=== PATIENT | male | born 1965 | race African-American/Black ===

== ENCOUNTER 2017-02-12 17:02 | Inpatient (IN) | payer MEDICARE ==
--- NOTE | ~2017-02-12 | DS ---
Unit #: [id number] #: [id number] Patient: ALLIE SCHRADER [id number] [place] [address] [id number] I MR#: [id number] NAME: ALLIE SCHRADER ROOM: [facility] Age: 51 Sex: M Admission Date: 02/12/2017 : 1965 Discharge Date: 02/16/2017 Attending Physician: Mynor Oreilly M.D. Primary Care Physician: Primary Care Physician No DISCHARGE SUMMARY REASON FOR ADMISSION Allie is a 53-year-old man, well known to us from previous admissions for schizoaffective disorder. He has obviously been noncompliant with his medications and was admitted in a rambling, grandiose, and psychotic state. DIAGNOSTIC STUDIES LABORATORY RESULTS: Please see hospital chart. HOSPITAL COURSE Allie was readmitted and placed on suicide and psychosis precautions. Zyprexa 10 mg at bedtime was re-initiated and he was seen by our medical affairs specialist, who added Cardizem CD 240 mg daily for his untreated hypertension. He also complained of some low back pain and Motrin was provided. He had an uneventful hospital course, but demonstrated remarkably poor insight, with ongoing grandiosity and rambling speech. He denied any further suicidal ideation, intent, or plan, and on the date of discharge, it was clear that he was not holdable after he requested discharge to the outpatient setting. At this point, his discharge was granted as he lacked criteria for involuntary care. DISCHARGE DIAGNOSES AXIS I: Schizoaffective disorder, bipolar type. AXIS II: No diagnosis. AXIS III: History of chronic pain, hypertension. AXIS IV: AXIS V: DISCHARGE INSTRUCTIONS Follow up with primary care physician and [facility]. DISCHARGE MEDICATIONS Zyprexa 10 mg at bedtime for schizoaffective disorder and Cardizem CD 240 mg daily for hypertension. CONDITION AT DISCHARGE Improved. PROGNOSIS Fair to good. DIET AND ACTIVITY Ad darlene. Unit #: [id number] #: [id number] Patient: ALLIE SCHRADER Dictated by... Mynor Oreilly M.D. [facility]/javidl TD: 04/02/2017 00:07 JOB #: [id number] DISCHARGE SUMMARY Page 1 of 1 X Mynor Oreilly MD DISCHARGE SUMMARY
--- NOTE | ~2017-02-12 | HP ---
Unit #: [id number] #: [id number] Patient: ALLIE SCHRADER [id number] [place] [address] [id number] I MR#: [id number] NAME: ALLIE SCHRADER ROOM: 32 Age: 51 Sex: M Admission Date: 02/12/2017 : 1965 Attending Physician: Mynor Oreilly M.D. Admitting Physician: Mynor Oreilly M.D. Primary Care Physician: Primary Care Physician No HISTORY AND PHYSICAL HISTORY OF PRESENT ILLNESS Allie is a 51 year old, admitted to [address] [place] [address] with psychotic behavior. He has had numerous admissions to this facility for treatment of the same. PAST MEDICAL HISTORY 1. High blood pressure. 2. Obesity. 3. Asthma. PAST SURGICAL HISTORY Nothing reported. ALLERGIES Thorazine, Wellbutrin, Haldol, Geodon, Depakote, and Keppra. SOCIAL HISTORY He denies cigarettes alcohol and illicit drug use. FAMILY HISTORY Medically noncontributory. REVIEW OF SYSTEMS CONSTITUTIONAL: No fever or chills. HEENT: Denies any sore throat, ear pain or runny nose. CARDIOVASCULAR: Denies chest pain, irregular heart rhythm or palpitations. CHEST: Denies shortness of breath or cough. No hemoptysis. GASTROINTESTINAL: Denies nausea, vomiting, diarrhea or chronic constipation. ENDOCRINE: Denies history of increased thirst or urination. No recent significant weight loss or gain. GENITOURINARY: Denies dysuria, frequency, or hematuria. SKIN: Denies any rashes. HEMATOLOGIC: Denies history of increased bleeding or bruising. MUSCULOSKELETAL: Denies any hot, swollen joints. No generalized muscle pain. NEUROLOGIC: Denies problems with vision or speech. No frequent, severe headaches. No numbness, tingling or weakness in any extremities. Denies loss of bladder or bowel control. CURRENT MEDICATIONS 1. Zyprexa 10 mg daily 2. Motrin 600 mg q.6h p.r.n. 3. Desyrel p.r.n. Unit #: [id number] #: [id number] Patient: ALLIE SCHRADER 4. Milk of magnesia p.r.n. 5. Maalox p.r.n. 6. Tylenol p.r.n. 7. Nicotine patch 7 mg daily PHYSICAL EXAMINATION GENERAL: Alert, well-nourished, no apparent distress. VITAL SIGNS: Blood pressure 150/100, heart rate 80, respirations 16, and temperature 98.6. WEIGHT: 294 pounds. HEIGHT: 6 feet 2 inches. SKIN: Warm and dry without rash or lesion. HEENT: Normocephalic. TMs not viewed. Oral and nasal passages clear. Conjunctivae clear. PERRLA. EOMs intact. NECK: Supple without lymphadenopathy or thyromegaly. HEART: Regular rate and rhythm without murmur. LUNGS: Clear. ABDOMEN: Soft, nontender. : Not done. EXTREMITIES: No evidence of cyanosis, clubbing or edema. Moves all without focal deficit. NEUROLOGICAL: Unable to complete extended exam. He does move all extremities without focal deficit. 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 IMPRESSION 1. Psychiatric admission. 2. High blood pressure, not controlled. I see that he is admitted on no blood pressure medications. RECOMMENDATIONS Psychiatric, per psychiatrist. MEDICAL 1. I see no contraindications to participating in facility's activities. 2. Start Cardizem CD 240 mg one p.o. daily, continue to monitor blood pressure every shift. MEDICAL PROGNOSIS Good. MEDICAL CONDITION Stable. Dictated by... Irais Canales P.A.-C. for Vianca Pinzon/doug TD: 02/13/2017 11:55 JOB #: [id number] Unit #: [id number] #: [id number] Patient: ALLIE SCHRADER HISTORY AND PHYSICAL Page 1 of 1 X Irais Canales X HISTORY AND PHYSICAL
--- NOTE | ~2017-02-12 | CO ---
Unit #: [id number] #: [id number] Patient: ALLIE SCHRADER [id number] [place] [address] [id number] I MR#: [id number] NAME: ALLIE SCHRADER ROOM: 30 Age: 51 Sex: M Admission Date: 02/12/2017 : 1965 Attending Physician: Mynor Oreilly M.D. Primary Care Physician: Primary Care Physician No Consultation Date: 02/13/2017 CONSULTATION REPORT SUBJECTIVE Allie is a 51-year-old who has complained of some generalized aches and pains to include his lower back. He denies any injury. We have been asked to assess and treat. OBJECTIVE GENERAL: Alert, well nourished, in no apparent distress. VITAL SIGNS: Blood pressure 140/74, heart rate 80, respirations 16, and temperature 98.6. SKIN: Warm and dry without rash. BACK: Minimal tenderness along the lower back. Full range of motion. ASSESSMENT Musculoskeletal pain. PLAN Continue Motrin and Tylenol. Dictated by... Bakari Penn/mel TD: 02/16/2017 15:43 JOB #: [id number] CONSULTATION REPORT Page 1 of 1 X Irais Canales CONSULTATION REPORT
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
[2017-02-13 09:56] LABS: ALBUMIN SERUM 3.5 g/dL (3.5-5.0); BILIRUBIN,TOTAL 0.7 mg/dL (0.2-2.0); GLOM FILT RATE Estimated 99.2 mL/min (>60); POTASSIUM 3.8 mmol/L (3.5-5.1); PROTEIN TOTAL SERUM 6.6 g/dL (6.0-8.3)
[2017-02-13 10:01] LABS: BASOPHIL# 0.1 X10e3 (0-0.3); BASOPHIL% 0.8 % (0-2.5); EOSINOPHIL# 0.4 X10e3 (0-0.7); EOSINOPHIL% 5.3 % (0.0-7.0); HEMATOCRIT 43.1 % (38.0-50.0); HEMOGLOBIN 13.8 gm/dL (13.0-16.0); LYMPHOCYTE# 1.6 X10e3 (1.0-3.5); LYMPHOCYTE% 24.8 % (17.0-45.0); MEAN CELL VOLUME 91.3 FL (83-96); MEAN CORPUSCULAR HEMOGLOBIN 29.3 PG (28-34); MEAN CORPUSCULAR HGB CONC 32.1 g/dL (30-36); MEAN PLATELET VOLUME 9.3 FL (6.5-11.5); MONOCYTE# 0.9 X10e3 (0-1.0); MONOCYTE% 12.8 % (3.0-12.0); NEUTROPHIL# 3.7 X10e3 (1.5-7.1); NEUTROPHIL% 56.3 % (40-75); PLATELET COUNT 246 X10e3 (140-420); RED BLOOD COUNT 4.72 X10e (3.90-5.60); RED CELL DISTRIBUTION WIDTH 13.2 % (11.0-15.5); WHITE BLOOD COUNT 6.6 X10e3 (4.0-10.5)
[2017-02-13 10:04] LABS: DIFF IND NO
[2017-02-13 10:49] LABS: AMPHETAMINE NEG (NEG); BARBITURATES NEG (NEG); BENZODIAZEPINES NEG (NEG); COCAINE NEG (NEG); MARIJUANA NEG (NEG); OPIATES NEG (NEG); TRICYCLIC ANTIDEPRESSANTS NEG (NEG); U METHADONE NEG (NEG)
== END 2017-02-16 14:11 | disposition home or self-care (01) | DRG 885 ==
LOC: P1S 17:02 → POF 02-15 07:27 → P1S 02-15 07:29
PROVIDERS: Psychiatry & Neurology Psychiatry
DX: F25.0 Schizoaffective disorder, bipolar type (principal); I10 Essential (primary) hypertension; G89.29 Other chronic pain
CPT/HCPCS: 80053; 80307; 85025

== ENCOUNTER 2017-02-18 23:17 | Inpatient (IN) | payer MEDICARE ==
--- NOTE | ~2017-02-18 | DS ---
Unit #: [id number] #: [id number] Patient: YEE SCHRADER [id number] [facility] [address] [place] [address] [id number] I MR#: [id number] NAME: YEE SCHRADER ROOM: [facility] Age: 51 Sex: M Admission Date: 02/18/2017 : 1965 Discharge Date: 02/24/2017 Attending Physician: Mynor Oreilly M.D. Primary Care Physician: Primary Care Physician No DISCHARGE SUMMARY REASON FOR ADMISSION Yee is a 51-year-old man, well known to us from multiple admissions with a history of schizoaffective disorder, who came in repeatedly noncompliant with his previous medications. He was clearly decompensated and was readmitted for stabilization. DIAGNOSTIC STUDIES LABORATORY RESULTS: Please see hospital chart. HOSPITAL COURSE The patient was admitted and placed on psychosis precautions. Olanzapine 10 mg at bedtime was restarted, later increased to 20 mg at bedtime due to ongoing psychosis. [place] 300 mg b.i.d. was also added near the end of his hospitalization, although the patient was unhappy with this medication and consistently refused it. Flonase and Proventil were provided as well as his Cardizem CD. He was agitated during parts of the hospitalization, and upset the milieu with his very loud, rambling, and grandiose speech. Eventually, this did calm to the point where he was more amenable to treatment compliance in the outpatient setting, with reduced grandiosity and reduced paranoia. On the date of discharge, he was achieved maximum benefit from hospitalization and was discharged to the community. DISCHARGE DIAGNOSES AXIS I: Schizoaffective disorder, bipolar type; history of cocaine abuse; history of alcohol abuse. AXIS II: No diagnosis. AXIS III: Hypertension, obesity, arthritis. AXIS IV: AXIS V: DISCHARGE INSTRUCTIONS Follow up with primary care physician and with [facility]. DISCHARGE MEDICATIONS Zyprexa 20 mg at bedtime for psychosis, lithium 300 mg b.i.d. for mood stability, and Cardizem CD 240 mg daily for hypertension. CONDITION AT DISCHARGE Fair. PROGNOSIS Fair. Unit #: [id number] #: [id number] Patient: YEE SCHRADER DIET AND ACTIVITY Per primary care doctor. Dictated by... Mynor Oreilly M.D. COBY/modl TD: 04/01/2017 23:23 JOB #: [id number] DISCHARGE SUMMARY Page 1 of 1 X Mynor Oreilly MD DISCHARGE SUMMARY
--- NOTE | ~2017-02-18 | HP ---
Unit #: [id number] #: [id number] Patient: ALLIE SCHRADER [id number] [facility] [address] [place] [address] [id number] I MR#: [id number] NAME: ALLIE SCHRADER ROOM: [facility] Age: 51 Sex: M Admission Date: 02/18/2017 : 1965 Attending Physician: Mynor Oreilly M.D. Admitting Physician: Mynor Oreilly M.D. Primary Care Physician: Primary Care Physician No HISTORY AND PHYSICAL Allie is a 51 year old admitted to [address] [place] [address] with psychotic behavior. He was just discharged from this facility after treatment for the same. Patient was seen and H and P dated 02/13/17 was reviewed. This is current. No changes. Please see H and P dated 02/13/17. Dictated by... Irais Canales P.A.-C. for Vianca Pinzon/saba TD: 02/19/2017 22:11 JOB #: [id number] HISTORY AND PHYSICAL Page 1 of 1 X Irais Canales HISTORY AND PHYSICAL
--- NOTE | ~2017-02-18 | PA ---
Unit #: [id number] #: [id number] Patient: ALLIE DUFFY [id number] [place] [address] [id number] I MR#: [id number] NAME: ALLIE DUFFY ROOM: [facility] Age: 51 Sex: M Admission Date: 02/18/2017 : 1965 Date of Assessment: 02/19/2017 Attending Physician: Mynor Oreilly M.D. Admitting Physician: Mynor Oreilly M.D. Primary Care Physician: Primary Care Physician No PSYCHIATRIC ASSESSMENT DATE OF ASSESSMENT 02/19/2017. INFORMANTS The patient reliable; OLOP, reliable. CHIEF COMPLAINT Disorganized and psychotic. HISTORY OF PRESENT ILLNESS Allie Duffy is a 51-year-old man who was discharged from this facility 2 days ago. The patient returned in a very disorganized and grandiose state, making multiple bizarre statements and clearly being noncompliant with his medications. He was unable to participate actively in the assessment to give accurate information. He was readmitted for his psychotic state. PAST PSYCHIATRIC HISTORY As noted, Allie was just discharged from this facility and has a history of multiple admissions here as well. He has had difficulty maintaining compliance in the outpatient setting and was last discharged on Zyprexa 10 mg at bedtime. FAMILY PSYCHIATRIC HISTORY The patient has a family history of alcoholism. SOCIAL HISTORY Please see previous assessments, which are unchanged. PAST MEDICAL HISTORY Hypertension. MEDICATIONS Cardizem CD and Zyprexa. ALLERGIES Thorazine, Wellbutrin, Haldol, Zoloft, Depakote, Geodon, Risperdal, and Keppra. SUBSTANCE ABUSE HISTORY The patient uses alcohol and cocaine occasionally. He denies any recent use. Unit #: [id number] #: [id number] Patient: ALLIE DUFFY MENTAL STATUS EXAMINATION Allie presented as a mildly disheveled man who appeared his stated age. He was loud, rambling, and had difficulty cooperating with the examination. He had multiple minor psychiatric and somatic complaints, which changed from moment to moment and which did not seem consistent. His mood was labile and expansive with intense affect. He was alert and oriented to person and location, partially to time, and partially to situation. Memory and concentration were impaired by his illness, and his thought processes were rambling and psychotic. He had no suicidal or homicidal ideation. Insight and judgment were fair. Fund of knowledge and abstraction were fair. ASSETS AND LIABILITIES The patient is familiar with local and national resources and is voluntary for treatment. Liabilities include unstable housing and compliance. ADMITTING DIAGNOSES AXIS I: Schizoaffective disorder, bipolar type; history of cocaine abuse; history of alcohol abuse. AXIS II: No diagnosis. AXIS III: Hypertension, obesity, history of arthritis. AXIS IV: AXIS V: PSYCHIATRIC PLAN The patient was admitted and his previous medications were restarted. He will enroll in dual diagnosis groups and activities as available, and a physical examination and laboratory studies will be repeated as indicated. TREATMENT GOALS Resolution of psychosis, improvement in insight, and improvement in coping skills. DISCHARGE PLANNING Follow up with [facility]. ESTIMATED LENGTH OF STAY 5 days. Dictated by... Vianca Hutchison/mel TD: 04/02/2017 02:00 JOB #: [id number] Unit #: [id number] #: [id number] Patient: ALLIE DUFFY PSYCHIATRIC ASSESSMENT Page 1 of 1 X Mynor Oreilly MD PSYCHIATRIC ASSESSMENT
[2017-02-21 13:55] LABS: AMPHETAMINE NEG (NEG); BARBITURATES NEG (NEG); BENZODIAZEPINES POS (NEG); COCAINE NEG (NEG); MARIJUANA NEG (NEG); OPIATES NEG (NEG); TRICYCLIC ANTIDEPRESSANTS NEG (NEG); U METHADONE NEG (NEG)
== END 2017-02-24 12:30 | disposition home or self-care (01) | DRG 885 ==
LOC: P1S 23:17 → POF 02-22 12:02 → P1S 02-22 12:07
PROVIDERS: Psychiatry & Neurology Psychiatry
DX: F25.0 Schizoaffective disorder, bipolar type (principal); Z91.19 Patient's noncompliance with other medical treatment and regimen; I10 Essential (primary) hypertension; E66.9 Obesity, unspecified; J45.909 Unspecified asthma, uncomplicated; M19.90 Unspecified osteoarthritis, unspecified site; Z59.0 Homelessness
CPT/HCPCS: 80307; J1200; J2060

== ENCOUNTER 2017-03-20 09:00 | Inpatient (IN) | payer MEDICARE ==
--- NOTE | ~2017-03-20 | DS ---
Unit #: [id number] #: [id number] Patient: YEE SCHRADER [id number] [facility] [address] [place] [address] [id number] I MR#: [id number] NAME: YEE SCHRADER ROOM: [facility] Age: 51 Sex: M Admission Date: 03/20/2017 : 1965 Discharge Date: 03/25/2017 Attending Physician: Mynor Oreilly M.D. Primary Care Physician: Generic Doctor Not In System DISCHARGE SUMMARY REASON FOR ADMISSION Yee is a 51-year-old man with multiple admissions to our facility, who has been noncompliant with his medications and presented in a grandiose and psychotic state. He was clearly decompensated and was admitted for further stabilization. DIAGNOSTIC STUDIES LABORATORY RESULTS: Please see hospital chart. HOSPITAL COURSE The patient was admitted and placed on psychosis precautions. His home medications were restarted, and the patient was very somatic, frequently making multiple somatic requests, but then forgetting about them soon thereafter, indicating a lack of seriousness in these requests. He requested re-initiation of Abilify, and although I am anxious to avoid dual antipsychotic treatment, both of these were restarted as it appears that a combination of 2 antipsychotics is the only possible way of stabilizing this patient. He refused to accept any further prescription for lithium, claiming an allergy that was not in evidence. On the date of discharge, he had calmed considerably and was able to discharge in stable condition. DISCHARGE DIAGNOSES AXIS I: Schizoaffective disorder, bipolar type, F25.0. AXIS II: No diagnosis. AXIS III: Hypertension, history of seasonal allergies, history of arthritis. AXIS IV: AXIS V: DISCHARGE INSTRUCTIONS Follow up with primary care physician and [facility]. DISCHARGE MEDICATIONS Zyprexa Zydis 20 mg at bedtime for psychosis and Abilify 15 mg each morning for psychosis. Dual antipsychotic treatment was indicated by the failure of multiple individual antipsychotic trials including Zyprexa, Geodon, and Abilify. The patient was continued on his other medications per his primary care physician. CONDITION AT DISCHARGE Improved. Unit #: [id number] #: [id number] Patient: YEE SCHRADER PROGNOSIS Fair to good. DIET AND ACTIVITY Per primary care doctor. Dictated by... Mynor Oreilly M.D. [facility]/mel TD: 04/02/2017 00:36 JOB #: [id number] DISCHARGE SUMMARY Page 1 of 1 X Mynor Oreilly MD DISCHARGE SUMMARY
--- NOTE | ~2017-03-20 | PA ---
Unit #: [id number] #: [id number] Patient: ALLIE DUFFY [id number] [facility] [address] [place] [address] [id number] I MR#: [id number] NAME: ALLIE DUFFY ROOM: [facility] Age: 51 Sex: M Admission Date: 03/20/2017 : 1965 Date of Assessment: 03/21/2017 Attending Physician: Mynor Oreilly M.D. Admitting Physician: Mynor Oreilly M.D. Primary Care Physician: Generic Doctor Not In System PSYCHIATRIC ASSESSMENT DATE OF ASSESSMENT 03/21/2017. INFORMANTS The patient, partially reliable; OL, reliable; [facility], reliable. CHIEF COMPLAINT Psychosis. HISTORY OF PRESENT ILLNESS Allie Duffy is a 51-year-old man, discharged from this hospital about a month ago, who came to [facility] in an agitated and psychotic state with extremely grandiose thought processes and content. He had clearly been noncompliant with his medications and was readmitted for stabilization. PAST PSYCHIATRIC HISTORY Multiple admissions to this facility. Please see previous assessments for details. FAMILY PSYCHIATRIC HISTORY Family history of alcoholism. SOCIAL HISTORY The patient is temporarily homeless, but does appear to have some supportive family in the area. Although, he has difficulty accessing them. See previous assessments for details. PAST MEDICAL HISTORY Hypertension, mild obesity, history of arthritis. MEDICATIONS Cardizem CD 240 mg daily. ALLERGIES Multiple allergies, of doubtful origin; please see chart for full list. SUBSTANCE ABUSE The patient has a history of abusing cocaine and alcohol on an erratic basis. He denies any recent use. MENTAL STATUS EXAMINATION Allei presented as a mildly disheveled man, who appeared his stated age. Unit #: [id number] #: [id number] Patient: ALLIE DUFFY His speech was loud, pressured, and difficult to interrupt. His speech content was quite rambling with multiple requests for somatic medications that change from moment to moment. His mood was expansive with increased range of affect. He was alert and oriented to person, location, and situation, but not time. Memory and concentration were impaired by his illness, and his thought processes were rambling, disorganized, and psychotic. He had no suicidal or homicidal ideation. Insight and judgment, fair. Fund of knowledge and abstraction, fair. ASSETS AND LIABILITIES The patient knows local resources and presents voluntarily for treatment. Liabilities include recent noncompliance. ADMITTING DIAGNOSES AXIS I: Schizoaffective disorder, bipolar type; history of cocaine abuse; history of alcohol abuse. AXIS II: No diagnosis. AXIS III: Hypertension, arthritis. AXIS IV: AXIS V: PSYCHIATRIC PLAN Allie was admitted and returned to treatment with his previous medications. He claims an allergy to lithium, but this was not confirmed and this was removed from his medication list with his knowledge. [place] was also restarted. He will enroll in dual diagnosis groups and activities. Physical examination will be repeated. TREATMENT GOALS Resolution of psychosis, improvement in insight, and improvement in coping skills. DISCHARGE PLANNING Follow up with community mental [facility] and primary care physician. ESTIMATED LENGTH OF STAY 5 days. Dictated by... Mynor Oreilly M.D. [facility]/mel TD: 04/01/2017 23:40 JOB #: [id number] Unit #: [id number] #: [id number] Patient: ALLIE DUFFY PSYCHIATRIC ASSESSMENT Page 1 of 1 X Mynor Oreilly MD PSYCHIATRIC ASSESSMENT
--- NOTE | ~2017-03-20 | HP ---
Unit #: [id number] #: [id number] Patient: YEE SCHRADER [id number] [facility] [address] [place] [address] [id number] MR#: [id number] NAME: YEE SCHRADER ROOM: [facility] Age: 51 Sex: M Admission Date: 03/20/2017 : 1965 Attending Physician: Mynor Oreilly M.D. Admitting Physician: Mynor Oreilly M.D. Primary Care Physician: Generic Doctor Not In System HISTORY AND PHYSICAL HISTORY OF PRESENT ILLNESS The patient is a 51 year old male admitted to [address] [place] [address] on 03/20/2017 for suicidal ideation. PAST MEDICAL HISTORY 1. Obesity. 2. Hypertension. 3. Hepatitis C. 4. History of myocardial infarction. PAST SURGICAL HISTORY None noted. ALLERGIES Haldol, lithium, Depakote, Risperdal, Thorazine, Wellbutrin, Zoloft, Keppra and Geodon. SOCIAL HISTORY Patient is unemployed. He stays with relatives. He has a history of polysubstance abuse. FAMILY HISTORY Noncontributory. REVIEW OF SYSTEMS CONSTITUTIONAL: No fever or chills. HEENT: Denies any sore throat, ear pain or runny nose. CARDIOVASCULAR: Denies chest pain, irregular heart rhythm or palpitations. CHEST: Denies shortness of breath or cough. No hemoptysis. GASTROINTESTINAL: Denies nausea, vomiting, diarrhea or chronic constipation. ENDOCRINE: Denies history of increased thirst or urination. No recent significant weight loss or gain. GENITOURINARY: Denies dysuria, frequency, or hematuria. SKIN: Denies any rashes. HEMATOLOGIC: Denies history of increased bleeding or bruising. MUSCULOSKELETAL: Denies any hot, swollen joints. No generalized muscle pain. NEUROLOGIC: Denies problems with vision or speech. No frequent, severe headaches. No numbness, tingling or weakness in any extremities. Denies loss of bladder or bowel control. CURRENT MEDICATIONS Unit #: [id number] #: [id number] Patient: YEE SCHRADER 1. Zyprexa. 2. [place]. 3. Flonase. 4. Proventil. PHYSICAL EXAMINATION GENERAL: He is awake, alert, oriented, in no acute distress. VITAL SIGNS: Temperature 98.0, heart rate 96, respirations 18, blood pressure 144/109. HEIGHT: 6 feet 0. WEIGHT: 279 pounds. SKIN: Warm and dry without rash or lesion. HEENT: Normocephalic. TMs not viewed. Oral and nasal passages clear. Conjunctivae clear. PERRLA. EOMs intact. NECK: Supple without lymphadenopathy or thyromegaly. HEART: Regular rate and rhythm without murmur. LUNGS: Clear. ABDOMEN: Soft, nontender. : Not done. EXTREMITIES: No evidence of cyanosis, clubbing or edema. Moves all without focal deficit. NEUROLOGICAL: Grossly within normal limits. Cranial Nerves: II: Visual price are intact. III, IV AND : Extraocular movements are intact. Pupils are equal, round and reactive to light. V: Facial sensation is grossly normal. VII: Facial movements and expression are normal. VIII: Auditory acuity grossly intact. IX, X: Uvula is midline. Phonation is normal. XI: Patient shrugs shoulders and turns head normally. XII: Tongue protrudes in the midline. Sensory and Motor Function: Sensory and motor sensation is grossly normal. Motor: moves all extremities well. Coordination: Gait is normal. Deep Tendon Reflexes: Intact. IMPRESSION 1. Psychiatric admission. 2. Obesity. 3. Hypertension. 4. Hep C. 5. History of myocardial infarction. RECOMMENDATIONS PSYCHIATRIC: Per psychiatrist. MEDICAL: No contraindications to participate in facility's activities. MEDICAL PROGNOSIS Fair. MEDICAL CONDITION Stable. Dictated by... Emperatriz Shultz A.P.R.N. /formerly [facility] Unit #: [id number] #: [id number] Patient: YEE SCHRADER TD: 03/21/2017 18:28 JOB #: [id number] HISTORY AND PHYSICAL Page 1 of 1 X EMPERATRIZ SHULTZ APRN HISTORY AND PHYSICAL
[2017-03-23 09:51] LABS: URINE APPEARANCE CLEAR; URINE BILIRUBIN NEG (NEG); URINE BLOOD NEG (NEG); URINE COLOR YELLOW; URINE GLUCOSE NEG (NEG); URINE KETONE NEG (NEG); URINE LEUKOCYTE ESTERASE NEG (NEG); URINE NITRATE NEG (NEG); URINE PROTEIN NEG (NEG); URINE SPECIFIC GRAVITY 1.008 (1.003-1.035); URINE UROBILINOGEN 0.2 MG/DL (NEG)
[2017-03-23 10:07] LABS: AMPHETAMINE NEG (NEG); BARBITURATES NEG (NEG); BENZODIAZEPINES NEG (NEG); COCAINE NEG (NEG); MARIJUANA NEG (NEG); OPIATES NEG (NEG); TRICYCLIC ANTIDEPRESSANTS NEG (NEG); U METHADONE NEG (NEG)
== END 2017-03-25 13:30 | disposition home or self-care (01) | DRG 885 ==
LOC: P1S 09:00
PROVIDERS: Psychiatry & Neurology Psychiatry
DX: F25.0 Schizoaffective disorder, bipolar type (principal); R45.851 Suicidal ideations; I10 Essential (primary) hypertension; E66.9 Obesity, unspecified; B19.20 Unspecified viral hepatitis C without hepatic coma; I25.2 Old myocardial infarction; Z88.5 Allergy status to narcotic agent; Z88.8 Allergy status to other drugs, medicaments and biological substances; F14.10 Cocaine abuse, uncomplicated; F10.10 Alcohol abuse, uncomplicated; M19.90 Unspecified osteoarthritis, unspecified site; Z56.0 Unemployment, unspecified
CPT/HCPCS: 80307; 81003; J1200